=== PATIENT | female | born 1990 | race Hispanic/Latino ===

== ENCOUNTER 2023-04-29 13:03 | Emergency (ER) | payer OTHER ==
[2023-04-29 15:17] LABS: ALT/SGPT 21 U/L (13-56); AST/SGOT 16 U/L (15-37); Albumin 3.7 g/dL (3.4-5.0); Alkaline Phosphatase 112 U/L (45-117); BUN Blood Urea Nitrogen 10 mg/dL (7-18); Bicarbonate 27 mEq/L (21-32); Bilirubin Direct 0.2 mg/dL (0-0.2); Bilirubin Indirect, Calculated 0.5 mg/dL (0.2-0.8); Bilirubin Total 0.7 mg/dL (0.2-1.0); Glomerular Filtration Rate 98 ml/min (=/>90); Glucose Level 108 mg/dL (74-106); Potassium 3.8 mEq/L (3.5-5.1); Protein, Total 10.1 g/dL (6.4-8.2); Sodium Level 137 mEq/L (136-145)
[2023-04-29 16:10] LABS: Absolute Lymphocytes (CBC) 2.9 K/uL (0.7-4.9); Hematocrit 36.7 % (36.0-45.0); Lymphocytes % 24.7 % (15.3-44.8); MCV 74.3 fL (80-100); MPV 7.8 fL (7.6-11.3); Platelets 449 thou/uL (152-406); RBC Red Blood Cell Count 4.94 M/uL (3.86-4.86)
[2023-04-29 16:12] LABS: Protime INR 1.25
[2023-04-29] MEDS ORDERED: ONDANSETRON 4 MG (ODT) TAB ONE (16:24)
[2023-04-29] MEDS ORDERED: NA CHLORIDE 0.9% 1,000 ML ONE (16:42)
[2023-04-29] MEDS ORDERED: KETOROLAC 30 MG/ML INJ ONE (16:42)
[2023-04-29 18:13] LABS: Specific Gravity 1.022 (1.005-1.030)
[2023-04-29 18:18] LABS: Specific Gravity 1.022 (1.005-1.030); Urine Bacteria None Seen /HPF (<20); Urine Bilirubin NEGATIVE (Negative); Urine Blood 3+ (Negative); Urine Clarity Extremely Turbid (Clear); Urine Color Yellow (Yellow); Urine Glucose NEGATIVE (Negative); Urine Mucus 1+ /HPF (None Seen); Urine Protein TRACE (Negative); Urine Urobilinogen Normal (Normal); Urine pH 6.5 (5.0-7.0)
[2023-04-29 18:23] LABS: Barbiturates NEGATIVE (NEGATIVE); Benzodiazepines NEGATIVE (NEGATIVE); Cocaine NEGATIVE (NEGATIVE); METHAMPHETAM NEGATIVE (NEGATIVE); Methadone NEGATIVE (NEGATIVE); Opiates NEGATIVE (NEGATIVE); Phencyclidine NEGATIVE (NEGATIVE); THC Cannibis POSITIVE (NEGATIVE)
--- NOTE | 2023-04-29 18:45 | ER ---
Nurse's Notes [facility] Name: Theresa Latif Age: 32 yrs Sex: Female : 1990 Arrival Date: 04/29/2023 Time: 13:03 Bed 16 Private MD: Diagnosis: Bilateral Open Wound for Groin;Adverse effect of opium, initial encounter Presentation: 04/29 13:32 Chief complaint: Patient states: Body aches, fatigue, not feeling well, EASTMAN, N/V. ll1 Detoxing off IV heroin and fentanyl. Bilateral chronic hip sores worse than usual with drainage for 1 week. EMS states: detox off of heroin and fentanyl for 2 days. VSS. Coronavirus screen: Client denies travel out of the [place] in the last 14 days. At this time, the client does not indicate any symptoms associated with coronavirus-19. Ebola Screen: Patient denies travel to an Ebola-affected area in the 21 days before illness onset. Initial Sepsis Screen: Does the patient meet any 2 criteria? No. Patient's initial sepsis screen is negative. Does the patient have a suspected source of infection? Yes: Skin breakdown/wound. Risk Assessment: Do you want to hurt yourself or someone else? Patient reports no desire to harm self or others. Onset of symptoms was April 28, 2023. 13:32 Method Of Arrival: EMS ll1 13:32 Acuity: ASHWINI 3 ll1 Triage Assessment: 13:36 General: Appears uncomfortable, Behavior is calm, cooperative, appropriate for age. ll1 General: Reports fatigue for. Pain: Complains of pain in head Quality of pain is described as. Neuro: Reports headache. GI: Reports nausea, vomiting. 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 - Social history:: Smoking status: Patient reports the use of cigarette tobacco products, smokes one-half pack cigarettes per day. Assessment: 18:55 Reassessment: Pt states she doesn't have anywhere to go when she leaves the hospital. eh3 Provided with community resource sheet and informed she does not have to go out on the street, she can stay in the ED lobby until she finds a ride. Vital Signs: 13:32 BP 122 / 61; Pulse 66; Resp 18; Temp 97.1; Pulse Ox 100% ; Weight 117.93 kg; Height 4 ll1 ft. 11 in. ; Pain 8/10; 15:32 BP 93 / 56; Pulse 57; Resp 18; Pulse Ox 100% on R/A; iw 16:30 BP 105 / 67; Pulse 81; Resp 18; Pulse Ox 100% on R/A; iw 17:30 BP 105 / 67; Pulse 59; Resp 18; Pulse Ox 100% on R/A; eh3 18:30 BP 108 / 55; Pulse 79; Resp 18; Pulse Ox 100% on R/A; eh3 13:32 Body Mass Index 52.51 (117.93 kg, 149.86 cm) ll1 13:32 Pain Scale: Adult ll1 ED Course: 13:06 Patient arrived in ED. mr 13:23 Arm band placed on. ll1 13:24 Adi Gibson PA is PHCP. cp 13:24 Aneudy Terry MD is Attending Physician. cp 13:36 Triage completed. ll1 14:40 Patient placed in an exam room, on a stretcher. iw 14:42 Anna Nava, RN is Primary Nurse. iw 14:55 Missed attempt(s): 22 gauge in left forearm. Bleeding controlled, band aid applied, iw catheter tip intact. Administered Medications: 14:59 CANCELLED (Physician Discretion): ondansetron 4 mg IVP once; over 2 minutes cp 15:30 Drug: Ondansetron PO 4 mg PO once Route: PO; iw 16:00 Follow up: Response: No adverse reaction; Nausea is decreased eh3 16:40 Drug: Ketorolac IVP 15 mg IVP once Route: IVP; Site: left wrist; iw 17:10 Follow up: Response: No adverse reaction; Pain is decreased eh3 16:40 Drug: NS 0.9% IV 1000 ml IV at 1 bolus Per protocol; 1000 mL bolus Route: IV; Rate: 1 iw bolus; Site: left wrist; 18:00 Follow up: IV Status: Completed infusion; IV Intake: 1000ml eh3 18:57 Drug: Doxycycline PO 100 mg PO once Route: PO; eh3 19:07 Follow up: Response: Medication administered at discharge. 3 Intake: 18:00 IV: 1000ml; Total: 1000ml. eh3 Outcome: 18:45 Discharge ordered by . sim 19:25 Patient left the ED. 3 Signatures: Selene Krishna, Reg Reg mr ElijahAnna, RN RN iw Adi Gibson PA PA cp Lewis, Lynsay, RN RN 1 Joanna Chavira RN RN 3 Corrections: (The following items were deleted from the chart) 13:37 13:32 Chief complaint: Patient states: Body aches, fatigue, not feeling well, [place], N/V. ll1 Detoxing off IV heroin and fentanyl. EMS states: detox off of heroin and fentanyl for 2 days. VSS 1 13:37 13:36 PMHx: None; ll1 ll1 13:38 13:32 Pulse 66bpm; Resp 18bpm; Pulse Ox 100%; Temp 97.1F; 117.93 kg; Height 4 ft. 11 1 in.; BMI: 52.5; Pain 8/10, Adult; ll1
--- NOTE | 2023-04-29 18:45 | EDPHYS ---
Physician Documentation [facility] Name: Theresa Latif Age: 32 yrs Sex: Female : 1990 Arrival Date: 04/29/2023 Time: 13:03 Bed 16 Private MD: ED Physician Aneudy Terry HPI: 04/29 13:40 This 32 yrs old Female presents to ER via EMS with complaints of Detox. cp 13:40 Patient is a 32-year-old female who presents to the emergency department with reported cp withdrawal symptoms from her use of heroin and fentanyl. Patient reports her last use was 2 days ago and that today she has had some nausea and vomiting and feels like she is detoxing. Patient also reports infection of groin wounds that she has had for several years due to her history of hidradenitis suppurativa. Patient denies fever but reports drainage from these wounds. 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 - Social history:: Smoking status: Patient reports the use of cigarette tobacco products, smokes one-half pack cigarettes per day. ROS: 13:45 Constitutional: Negative for body aches, chills, fever, cp 13:45 Abdomen/GI: Positive for nausea and vomiting, Negative for abdominal pain, cp 13:45 Eyes: Negative for injury, pain, redness, and discharge, cp 13:45 ENT: Negative for drainage from ear(s), ear pain, sore throat, difficulty swallowing, difficulty handling secretions, 13:45 Cardiovascular: Negative for chest pain, 13:45 Respiratory: Negative for cough, shortness of breath, wheezing, 13:45 Skin: Positive for of the buttocks and right groin and left groin, chronic wounds, 13:45 Neuro: Negative for altered mental status, dizziness, headache, weakness, 13:45 All other systems are negative, Exam: 13:50 Constitutional: The patient appears in no acute distress, alert, awake, non-toxic, well cp developed, well nourished, 13:50 Head/Face: Normocephalic, atraumatic. cp 13:50 Eyes: Periorbital structures: appear normal, Conjunctiva: normal, no exudate, no injection, Sclera: no appreciated abnormality, Lids and lashes: appear normal, bilaterally, 13:50 ENT: External ear(s): are unremarkable, Nose: is normal, Mouth: Lips: moist, Oral mucosa: pink and intact, moist, Posterior pharynx: is normal, airway is patent, no erythema, no exudate, 13:50 Neck: ROM/movement: is normal, is supple, without pain, no range of motions limitations, 13:50 Chest/axilla: Inspection: normal, 13:50 Cardiovascular: Rate: normal, Rhythm: regular, 13:50 Respiratory: the patient does not display signs of respiratory distress, Respirations: normal, no use of accessory muscles, no retractions, labored breathing, is not present, Breath sounds: are clear throughout, no decreased breath sounds, no stridor, no wheezing, 13:50 Abdomen/GI: Inspection: abdomen appears normal, Bowel sounds: active, all quadrants, Palpation: abdomen is soft and non-tender, in all quadrants, 13:50 Skin: chronic wounds noted to right groin and left groin and buttock with scant bloody discharge expressed and erythema an/or swelling noted. 13:50 Neuro: Orientation: to person, place \T\ time. Mentation: is normal, Motor: moves all fours, strength is normal, Sensation: is normal, 16:10 ECG was reviewed by the Attending Physician. cp Vital Signs: 13:32 BP 122 / 61; Pulse 66; Resp 18; Temp 97.1; Pulse Ox 100% ; Weight 117.93 kg; Height 4 ll1 ft. 11 in. ; Pain 8/10; 15:32 BP 93 / 56; Pulse 57; Resp 18; Pulse Ox 100% on R/A; iw 16:30 BP 105 / 67; Pulse 81; Resp 18; Pulse Ox 100% on R/A; iw 17:30 BP 105 / 67; Pulse 59; Resp 18; Pulse Ox 100% on R/A; eh3 18:30 BP 108 / 55; Pulse 79; Resp 18; Pulse Ox 100% on R/A; eh3 13:32 Body Mass Index 52.51 (117.93 kg, 149.86 cm) ll1 13:32 Pain Scale: Adult ll1 MDM: 13:29 Patient medically screened. cp 16:00 Differential diagnosis: cellulitis, sepsis, electrolyte abnormality. cp 17:25 ED course: As requested by patient messages left on the voicemail of Arabella, who is cp apparently the patient's nurse for an update and also with the switchboard receptionist for Dr. Kelsy Lyles. 18:45 Data reviewed: vital signs, nurses notes, lab test result(s), EKG. cp 18:45 I considered the following discharge prescriptions or medication management in the emergency department Medications were administered in the Emergency Department. See MAR. Independent interpretation of the following test(s) in the Emergency Department EKG: See my EKG interpretation above. Counseling: I had a detailed discussion with the patient and/or guardian regarding the historical points, exam findings, and any diagnostic results supporting the discharge/admit diagnosis, lab results, to return to the emergency department if symptoms worsen or persist or if there are any questions or concerns that arise at home. ED course: Vital signs stable. Patient monitored in the ED and no vomiting observed. Labs and EKG all reviewed and no significant findings noted. Wounds with some drainage but not grossly infected will discharge with prescription for antibiotics and patient encouraged to seek rehab for drug use. 04/29 13:37 Order name: Acetaminophen; Complete Time: 16:26 04/29 16:27 Interpretation: Reviewed. 04/29 13:37 Order name: Basic Metabolic Panel; Complete Time: 16:26 04/29 16:27 Interpretation: Normal except: GLUC 108. 04/29 13:37 Order name: CBC with Diff; Complete Time: 16:26 04/29 16:27 Interpretation: Normal except: WBC 11.60; RBC 4.94; MCV 74.3; MCH 24.8; PLT 449; RDW cp 19.5; MN% 2.9; NEUT A 8.1. 04/29 13:37 Order name: ETOH Level; Complete Time: 16:26 04/29 13:37 Order name: Hepatic Function; Complete Time: 16:26 04/29 16:27 Interpretation: Normal except: TP 10.1; GLOB 6.4; A/G 0.6. 04/29 13:37 Order name: PT-INR; Complete Time: 16:26 04/29 16:27 Interpretation: Reviewed. 04/29 13:37 Order name: Test, Urine; Complete Time: 18:40 cp 04/29 13:37 Order name: Ptt, Activated; Complete Time: 16:26 04/29 13:37 Order name: Salicylate; Complete Time: 16:26 04/29 13:37 Order name: Urinalysis w/ reflexes; Complete Time: 18:40 cp 04/29 18:40 Interpretation: Normal except: [facility] Extremely Turbid; UBLD 3+; UPROT TRACE; UESTR 75; cp UWBC 10-20; URBC 11-20; SQEPI 20-50; BYST Trace. 04/29 13:37 Order name: Urine Drug Screen; Complete Time: 18:40 04/29 13:37 Order name: EKG; Complete Time: 13:38 04/29 13:37 Order name: EKG - Nurse/Tech; Complete Time: 16:20 04/29 13:37 Order name: IV Saline Lock; Complete Time: 16:20 04/29 13:37 Order name: Labs collected and sent; Complete Time: 14:54 04/29 15:07 Order name: Labs - recollect needed: please recollect blue and lavender top; Complete em1 Time: 15:53 04/29 17:33 Order name: PO challenge; Complete Time: 17:34 cp EC:10 Rate is 76 beats/min. Rhythm is regular. OH interval is normal. QRS interval is cp prolonged at 104 msec. QT interval is normal. T waves are Inverted in lead aVR. Interpreted by me. Reviewed by me. Administered Medications: 14:59 CANCELLED (Physician Discretion): ondansetron 4 mg IVP once; over 2 minutes cp 15:30 Drug: Ondansetron PO 4 mg PO once Route: PO; iw 16:00 Follow up: Response: No adverse reaction; Nausea is decreased eh3 16:40 Drug: Ketorolac IVP 15 mg IVP once Route: IVP; Site: left wrist; iw 17:10 Follow up: Response: No adverse reaction; Pain is decreased eh3 16:40 Drug: NS 0.9% IV 1000 ml IV at 1 bolus Per protocol; 1000 mL bolus Route: IV; Rate: 1 iw bolus; Site: left wrist; 18:00 Follow up: IV Status: Completed infusion; IV Intake: 1000ml eh3 18:57 Drug: Doxycycline PO 100 mg PO once Route: PO; 3 19:07 Follow up: Response: Medication administered at discharge. [facility] Disposition Summary: 04/29/23 18:45 Discharge Ordered Notes: Location: Home cp Problem: new cp Symptoms: have improved cp Condition: Stable cp Diagnosis - Bilateral Open Wound for Groin cp - Adverse effect of opium, initial encounter cp Followup: cp - With: Private Physician - When: 2 - 3 days - Reason: Recheck today's complaints Discharge Instructions: - Discharge Summary Sheet iw - Opioid Withdrawal cp - Opioid Use Disorder cp - Wound Care, Adult cp Forms: - Medication Reconciliation Form cp - Thank You Letter cp - Antibiotic Education cp - Prescription Opioid Use cp - Patient Portal Instructions cp - Leadership Thank You Letter cp Prescriptions: - Zofran 4 mg Oral Tablet - take 1 tablet ORAL route every 12 hours As needed; 20 tablet; Refills: 0, cp Product Selection Permitted - Doxycycline Hyclate 100 mg Oral Tablet - take 1 tablet ORAL route every 12 hours; 20 tablet; Refills: 0, Product cp Selection Permitted Signatures: Dispatcher [employer] Anna Rodriguez RN RN iw Tomas Dowell em1 Adi Gibson PA PA cp Cm Rodriguez RN RN 1 Joanna Chavira RN RN 3 Corrections: (The following items were deleted from the chart) 13:37 13:36 PMHx: None; 1 ll1 14:54 13:37 Suicide Screening ([place]) ordered. [facility] 14:59 14:26 Ondansetron IVP 4 mg IVP once; over 2 minutes ordered. cp 04/30 15:08 12 13:40 Patient is a 32-year-old female who presents to the emergency department cp with reported withdrawal symptoms from her use of heroin. Patient reports her last use was 2 days ago and that today she has had some nausea and vomiting and feels like she is detoxing. cp
[2023-04-29] MEDS ORDERED: DOXYCYCLINE 100 MG CAP PO ONE (19:16)
[2023-04-29 19:42] VITALS: TEMP 97.1; O2SAT 100
[2023-04-29 19:46] VITALS: BP 108/55
--- NOTE | 2023-05-04 14:02 | EKG ---
Test Date: 2023-04-29 Test Time: 16:03:19 Adult Services Librarian: BAILEE MEASUREMENT RESULTS: Intervals: Rate: 76 CT: 146 QRSD: 104 QT: 418 QTc: 470 Eldred: P: 44 CT: 146 QRS: 50 T: 49 INTERPRETIVE STATEMENTS: Normal sinus rhythm Normal ECG No previous ECG available for comparison Electronically Signed On 05-04-23 13:45:45 BUILDING CLEANING SUPERVISOR by Mike Romano
== END 2023-04-29 19:25 | disposition home or self-care (01) ==
LOC: ER 13:03
DX: R11.2 Nausea with vomiting, unspecified (principal); T40.0X5A Adverse effect of opium, initial encounter; S31.104A Unspecified open wound of abdominal wall, left lower quadrant without penetration into peritoneal cavity, initial encounter; S31.103A Unspecified open wound of abdominal wall, right lower quadrant without penetration into peritoneal cavity, initial encounter; F17.210 Nicotine dependence, cigarettes, uncomplicated
CPT/HCPCS: 96361; 93005; 85025; 81001; 80048; 36415; 81025; 85610; 80076; 85730; 80307; 96374; 99284; 80143; 80179; 82077; Q0162; J7030